=== PATIENT | male | born 1960 | race Caucasian/White ===

== ENCOUNTER 2024-12-15 19:49 | Emergency (ER) | payer OTHER ==
[~2024-12-15] VITALS: Ht 172.7 cm; Wt 90.7 kg
[2024-12-15] MEDS ORDERED: Lidocaine Hydrochloride 2% 10 ML AMP SC ONE (20:20)
[2024-12-15] MEDS ORDERED: LIDOCAINE HCL/EPINEPHRINE 50 ML VIAL ONE (20:45)
== END 2024-12-15 22:26 | disposition home or self-care (01) ==
LOC: ED 19:49
DX: S81.011A Laceration without foreign body, right knee, initial encounter (principal); W18.39XA Other fall on same level, initial encounter; Y93.89 Activity, other specified; Y92.89 Other specified places as the place of occurrence of the external cause; Y99.8 Other external cause status